=== PATIENT | female | born 1935 | race Caucasian/White ===

== ENCOUNTER 2018-01-02 10:20 | Outpatient (CLI) ==
--- NOTE | 2018-01-02 11:26 | DEXA ---
EXAM: DEXA scan. HISTORY: Osteoporosis. COMPARISON: 12/01/2015. TECHNIQUE: [employer] [id number]. DEXA scan lumbar spine performed. Quality of the study is good. BMD is 1.299 grams per square centi meter. T-score 1.0. Z-score 2.6. DEXA scan hips performed. Quality of the study is good. BMD 0.993 grams per square centimeter. T-sc ore -0.3. Z-score 1.8. IMPRESSION: According to the World Health Organization classification, lumbar spine and hip bone mineral density demonstrates normal mineralization, with no increased fracture risk. Ten-year major osteoporotic fra cture risk is 15.3%. Ten-year hip fracture risk is 7.2%. Since the prior study, there has been no s tatistically significant interval change.
--- NOTE | 2018-01-03 10:04 | MAMMO ---
EXAM: Bilateral digital screening mammogram (2-D and 3-D) History: Screening Comparison: Bilateral mammogram 01/08/2013 Findings: MLO and CC views of bilateral breasts demonstrate predominately fatty replaced breast pare nchyma. CAD was reviewed by the radiologist. Tomosynthesis was performed. Stable benign bilateral vascular calcifications. There are no dominant masses, no suspicious microcalcifications and no arch itectural distortions Impression: Benign stable mammogram. Recommend followup routine screening mammography in 1 year. BIRADS 2
== END 2018-01-02 10:21 | disposition home or self-care (01) ==
LOC: RAD 10:20
PROVIDERS: ATTEND Family Medicine
DX: Z12.31 Encounter for screening mammogram for malignant neoplasm of breast (principal); M81.0 Age-related osteoporosis without current pathological fracture; M48.50XD Collapsed vertebra, not elsewhere classified, site unspecified, subsequent encounter for fracture with routine healing
CPT/HCPCS: 77067

== ENCOUNTER 2018-04-16 14:12 | Outpatient (CLI) ==
--- NOTE | 2018-04-16 14:58 | DI ---
EXAM: Two views of the left knee HISTORY: Left knee pain. COMPARISON: right knee x-ray 11/12/2010 FINDINGS: Left knee arthroplasty is normal in appearance. There is no evidence of hardware fracture or loosening. The patella is normal in appearance with small osteophytes. The soft tissues are unre markable. There is no lytic or blastic lesion. IMPRESSION: Left knee arthroplasty changes with no visualized fracture or dislocation.
== END 2018-04-16 14:13 | disposition home or self-care (01) ==
LOC: RAD 14:12
PROVIDERS: ATTEND Family Medicine
DX: M25.562 Pain in left knee (principal)

== ENCOUNTER 2019-01-04 08:48 | Outpatient (CLI) | payer OTHER ==
--- NOTE | 2019-01-04 10:24 | MAMMO ---
EXAM: Bilateral digital screening mammogram (2-D and 3-D) History: Screening Comparison: Bilateral mammogram 01/02/2018 Findings: MLO and CC views of bilateral breasts demonstrate predominately fatty replaced breast pare nchyma. CAD was reviewed by the radiologist. Tomosynthesis was performed. There are no dominant ma sses, no suspicious microcalcifications and no architectural distortions. Stable benign bilateral va scular calcifications. Impression: Benign stable mammogram. Recommend followup routine screening mammography in 1 year. BIRADS 2, benign
== END 2019-01-04 08:49 | disposition home or self-care (01) ==
LOC: RAD 08:48
PROVIDERS: ATTEND Family Medicine
DX: Z12.31 Encounter for screening mammogram for malignant neoplasm of breast (principal)